=== PATIENT | female | born 2000 | race African-American/Black ===

== ENCOUNTER 2018-01-04 03:18 | Observation (INO) | payer MEDICAID ==
[2018-01-04] VITALS (9 sets, daily range): BP systolic 89–120; BP diastolic 51–70; PULSE 66–128; RESP 16–22; TEMP 97.9–99.4; O2SAT 93–99
[~2018-01-04 03:18] MED LIST: IBUP600 PO; OXYC1SOL5 PO; PREN1CAP30 PO
--- NOTE | 2018-01-04 03:35 | PD ---
HPI Chief Complaint: Respiratory Symptoms Time Seen by Provider: 03:26 Travel History International Travel<30 days: No Contact w/Intl Traveler<30days: No Traveled to known affect area: No History of Present Illness HPI The patient is a 17 year old female who presents to the [facility] emergency department with a history of shortness of breath that began 2-3 days ago. The patient reports that it became much worse this evening at work. The patient reports that she became nauseated and flushed and passed out. She denies hurting herself with a syncopal event. The patient reports having history of asthma, however she has not been on a rescue inhaler for the last couple of years. She denies having any lower extremity edema, calf pain, or erythema. She is currently on a Nexplanon implant for control. She reports that she has had vaginal bleeding and spotting for the last month. The patient reports having a cough that has been dry in character, clear rhinorrhea. She reports having chills but no known fever. The patient had one episode of vomiting prior to arrival. On review of systems otherwise, she denies having any neck pain, abdominal pain, diarrhea, urinary symptoms, or other neurologic symptoms. [facility] Past Medical History Narrative Medical The patient has a past medical history of asthma Asthma: Yes Autoimmune Disease: No Blood Disorders: No Anxiety: No Depression: No Heart Rhythm Problems: No Cardiovascular Problems: No Chest Pain: Yes (HX OF ASTHMA.) Cystic Fibrosis: No Diminished Hearing: No Genitourinary: No Headaches: No Hypertension: No Musculoskeletal: No Neurologic: Yes Psychiatric: No Respiratory: Yes Immunizations Current: Yes Seizures: No Sickle Cell Disease: No Sleep Apnea: No ?: Unknown Past Surgical History Narrative Surgical The patient's past surgical history is significant for a . Abdominal Surgery: No Cardiac Surgery: No Section: Yes Ear Surgery: No Endocrine Surgery: No Eye Surgery: No Genitourinary Surgery: No Gynecologic Surgery: No Neurologic Surgery: No Oral Surgery: No Thoracic Surgery: No Other Surgery: No Social History Alcohol Use: No Tobacco Use: No Substance Use: No Allergies-Medications (Allergen,Severity, Reaction): Coded Allergies: No Known Allergies (Verified Adverse Reaction, Unknown, 01/04/18) Reported Meds & Prescriptions Reported Meds & Active Scripts Active Review of Systems Except as stated in HPI: all other systems reviewed are Neg General / Constitutional: No: Fever Eyes: No: Visual changes HENT: Positive: Rhinorrhea, Congestion, No: Headaches Cardiovascular: Positive: Chest Pain or Discomfort, Dyspnea on exertion Respiratory: Positive: Cough, Shortness of Breath Gastrointestinal: Positive: Nausea, Vomiting, No: Diarrhea, Abdominal Pain Genitourinary: No: Dysuria Musculoskeletal: No: Pain Skin: No Rash Neurologic: Positive: Syncope, No: Weakness, Focal Abnormalities, Change in Mentation, Slurred Speech, Sensory Disturbance Psychiatric: No: Depression Endocrine: No: Polydipsia Hematologic/Lymphatic: No: Easy Bruising Physical Exam Narrative General: The patient is a well-developed well-nourished female, short of breath on arrival with accessory muscle use noted. Head and Neck exam: Head is normocephalic atraumatic. Eyes: EOMI, pupils are equal round and reactive to light. Nose: Midline septum with pink mucous membranes Mouth: Dentition unremarkable. Moist mucus membranes. Posterior oropharynx is not erythematous. No tonsillar hypertrophy. Uvula midline. Airway patent. Neck: No palpable lymphadenopathy. No nuchal rigidity. No thyromegaly. Cardiovascular: Sinus tachycardia in the low 100 without murmurs, gallops, or rubs. No pulse deficit to the extremities on simultaneous auscultation and palpation of her radial artery. Lungs: Expiratory wheezes are audible in bilateral lung galicia. No rhonchi, no crackles. The patient has accessory muscle use noted. The patient has mild conversational dyspnea. No paroxysmal abdominal breathing. Abdomen: Soft, without tenderness to palpation in all 4 quadrants of the abdomen. No guarding, rebound, or rigidity. Normal bowel sounds are audible. No tenderness on palpation of McBurney's point. Negative Chinchilla sign. Extremities: No clubbing, cyanosis, or edema. 2+ pulses in all 4 extremities. No calf tenderness on palpation. Back: No costovertebral angle tenderness to palpation. Neurologic Exam: Grossly nonfocal. Skin Exam: No rash noted. Intact skin that is warm and dry. Data Data Last Documented VS Vital Signs Date Time Temp Pulse Resp B/P (MAP) Pulse Ox O2 Delivery O2 Flow Rate FiO2 01/04/18 03:50 94 Nasal Cannula 21 01/04/18 03:45 22 01/04/18 03:29 119 01/04/18 03:19 99.0 120/70 (87) Orders Orders Complete Blood Count With Diff (01/04/18 03:41) Comprehensive Metabolic Panel (01/04/18 03:41) Lipase (01/04/18 03:41) Magnesium (Mg) (01/04/18 03:41) Chest, Single Ap (01/04/18 03:41) Iv Access Insert/Monitor (01/04/18 03:41) Ecg Monitoring (01/04/18 03:41) Oximetry (01/04/18 03:41) Ed Urine Pregnancytest Poc (01/04/18 03:41) Methylprednisolone So Succ Inj (Solumedr (01/04/18 03:45) Albuterol-Ipratropium Neb (Duoneb Neb) (01/04/18 03:45) Sodium Chlor 0.9% 1000 Ml Inj (Ns 1000 M (01/04/18 03:45) Ondansetron Inj (Zofran Inj) (01/04/18 03:45) Admit Order (Ed Use Only) (01/04/18 05:56) Azithromycin Inj (Zithromax Inj) (01/04/18 06:00) Sodium Chlor 0.9% 1000 Ml Inj (Ns 1000 M (01/04/18 06:00) Labs Laboratory Tests Test 01/04/18 03:55 White Blood Count 12.2 TH/MM3 Red Blood Count 4.59 MIL/MM3 Hemoglobin 13.7 GM/DL Hematocrit 41.0 % Mean Corpuscular Volume 89.5 FL Mean Corpuscular Hemoglobin 29.9 PG Mean Corpuscular Hemoglobin Concent 33.4 % Red Cell Distribution Width 14.2 % Platelet Count 345 TH/MM3 Mean Platelet Volume 8.4 FL Neutrophils (%) (Auto) 89.7 % Lymphocytes (%) (Auto) 5.8 % Monocytes (%) (Auto) 3.9 % Eosinophils (%) (Auto) 0.3 % Basophils (%) (Auto) 0.3 % Neutrophils # (Auto) 10.9 TH/MM3 Lymphocytes # (Auto) 0.7 TH/MM3 Monocytes # (Auto) 0.5 TH/MM3 Eosinophils # (Auto) 0.0 TH/MM3 Basophils # (Auto) 0.0 TH/MM3 CBC Comment DIFF FINAL Differential Comment Blood Urea Nitrogen 9 MG/DL Creatinine 0.75 MG/DL Random Glucose 135 MG/DL Total Protein 8.2 GM/DL Albumin 4.0 GM/DL Calcium Level 9.4 MG/DL Magnesium Level 2.0 MG/DL Alkaline Phosphatase 71 U/L Aspartate Amino Transf (AST/SGOT) 20 U/L Alanine Aminotransferase (ALT/SGPT) 21 U/L Total Bilirubin 0.4 MG/DL Sodium Level 140 MEQ/L Potassium Level 3.9 MEQ/L Chloride Level 107 MEQ/L Carbon Dioxide Level 23.2 MEQ/L Anion Gap 10 MEQ/L Estimat Glomerular Filtration Rate 120 ML/MIN Lipase 108 U/L MDM Medical Decision Making Medical Screen Exam Complete: Yes Emergency Medical Condition: Yes Medical Record Reviewed: Yes Differential Diagnosis Asthma exacerbation, versus symptomatic anemia from dysfunctional uterine bleeding, versus pneumothorax, versus pneumonia Narrative Course During the course of the patient's emergency department visit, the patient's history, examination, and differential diagnosis were reviewed with the patient. The patient was placed on a cardiac exercise specialist with oximetry and frequent blood pressure monitoring. The patient had IV access obtained and blood work sent for analysis. The patient was initially provided Solu-Medrol 125 mg IV, DuoNeb 3. The patient's laboratory studies were reviewed and remarkable for a white count of 12.2, hemoglobin 13.7, platelets 345 with 89.7 neutrophils, CMP is remarkable for a glucose of 135, otherwise unremarkable, lipase 108. Radiology studies were reviewed and remarkable for a chest x-ray that shows no evidence of acute cardiopulmonary disease. The patient on reexamination was noted to continue to have wheezing and tachycardia. The patient's O2 saturation on room air is 93%. The patient was resting comfortably with resolution of the retractions, however wheezing was noted on auscultation. The patient will be admitted to the hospital for observation and treatment of an asthma exacerbation. The patient was treated with azithromycin 500 mg IV 1. The patient's results were discussed with the patient, including the plan of care. I explained that further testing and/ or monitoring is indicated based on the patient's history, examination, and/ or laboratory findings. Therefore, I recommended admission for additional evaluation. The patient expressed understanding and was agreeable with this plan. The patient was admitted to the hospital in stable condition and sent to a bed under the care of the [facility] service. Physician Communication Physician Communication The patient's case including history, pertinent physical examination findings, and laboratory studies were discussed with Dr. Lozano. It was agreed that the patient would be admitted to the [facility] service. Diagnosis Primary Impression: Asthma exacerbation Qualified Codes: J45.41 - Moderate persistent asthma with (acute) exacerbation Admitting Information Admitting Physician Requests: Tisha Montalvo MD Jan 04, 2018 03:35
[2018-01-04] MEDS ORDERED: methylPREDNISolone SOD SUCC 125 MG/2 ML VIAL IV PUSH ONE (03:45)
[2018-01-04] MEDS ORDERED: SODIUM CHLOR 0.9% 1000 ML INJ 1,000 ML IV ONE ×2 (03:45→06:00)
[2018-01-04] MEDS ORDERED: ONDANSETRON HCL 4 MG/2 ML VIAL IV ONE (03:45)
[2018-01-04] MEDS: RESP: ALBUTEROL 2.5 MG/IPRATROPIUM 0.5 MG NEB (SCH) INH ×2 (03:49→03:50)
--- NOTE | 2018-01-04 04:09 | RADRPT ---
EXAM DATE/TIME: 01/04/2018 03:57 [place] COMPARISON: No previous studies available for comparison. INDICATIONS : Short of breath. MEDICAL HISTORY : None. SURGICAL HISTORY : None. ENCOUNTER: Initial ACUITY: 1 day PAIN SCORE: 0/10 LOCATION: Bilateral chest FINDINGS: A single view of the chest demonstrates the lungs to be symmetrically aerated without evidence of mas s, infiltrate or effusion. The cardiomediastinal contours are unremarkable. Osseous structures are intact. CONCLUSION: No evidence of acute cardiopulmonary disease. Nelson Schmitz MD on January 04, 2018 at 4:08 Board Certified Radiologist. This report was verified electronically.
[2018-01-04 04:20] LABS: AUTOMATED NEUTROPHIL # 10.9 TH/MM3 (1.8-7.7); BASOPHIL % 0.3 % (0.0-2.0); EOSINOPHIL % 0.3 % (0.0-4.0); HEMOGLOBIN 13.7 GM/DL (11.6-15.3); LYMPH % 5.8 % (9.0-44.0); LYMPHOCYTE # 0.7 TH/MM3 (1.0-4.8); MEAN CELL VOLUME 89.5 FL (80.0-100.0); MEAN CORPUSCULAR HEMOGLOBIN 29.9 PG (27.0-34.0); MEAN CORPUSCULAR HGB CONC 33.4 % (32.0-36.0); MEAN PLATELET VOLUME 8.4 FL (7.0-11.0); MONO % 3.9 % (0.0-8.0); MONOCYTE # 0.5 TH/MM3 (0-0.9); NEUT % 89.7 % (16.0-70.0); PLATELET COUNT 345 TH/MM3 (150-450); RED BLOOD COUNT 4.59 MIL/MM3 (4.00-5.30); RED CELL DISTRIBUTION WIDTH 14.2 % (11.6-17.2); WHITE BLOOD COUNT 12.2 TH/MM3 (4.0-11.0)
[2018-01-04 04:43] LABS: ALKALINE PHOSPHATASE 71 U/L (45-117); TOTAL BILIRUBIN ADULT 0.4 MG/DL (0.2-1.0); TOTAL PROTEIN 8.2 GM/DL (6.4-8.2)
[2018-01-04 04:44] LABS: ALT (GPT) 21 U/L (9-42); AST (GOT) 20 U/L (16-38); BICARBONATE 23.2 MEQ/L (21.0-32.0); BLOOD UREA NITROGEN 9 MG/DL (7-18); CALCIUM 9.4 MG/DL (8.5-10.1); CHLORIDE 107 MEQ/L (98-107); CREATININE 0.75 MG/DL (0.50-1.00); GLOMERULAR FILTRATION RATE 120 ML/MIN (>89); GLUCOSE,RANDOM 135 MG/DL (74-106); SODIUM (NA) 140 MEQ/L (136-145)
[2018-01-04] MEDS ORDERED: ALBU1AER5 INH (05:42)
[2018-01-04] MEDS ORDERED: AZITHROMYCIN INJ 500 MG in SODIUM CHLOR 0.9% 250 ML INJ 250 ML IV ONE (06:00)
[2018-01-04] MEDS ORDERED: LACTULOSE SYRUP 20 GM/30 ML CUP PO PRN (06:00)
[2018-01-04] MEDS ORDERED: BISACODYL 10 MG SUPP RECTAL PRN (06:00)
[2018-01-04] MEDS ORDERED: NALOXONE HCL 0.4 MG/ML AMP IV PUSH PRN (06:00)
[2018-01-04] MEDS ORDERED: ONDANSETRON HCL 4 MG/2 ML VIAL IVP PRN (06:00)
[2018-01-04] MEDS ORDERED: SENNOSIDES 8.6 MG TAB PO PRN (06:00)
[2018-01-04] MEDS ORDERED: RESP: ALBUTEROL 2.5 MG/IPRATROPIUM 0.5 MG NEB (PRN) NEB (06:00)
[2018-01-04] MEDS ORDERED: SODIUM CHLORIDE 0.9% FLUSH 10 ML FLUSH IV FLUSH PRN (06:00)
[2018-01-04] MEDS ORDERED: ACETAMINOPHEN 325 MG TAB PO PRN (06:00)
[2018-01-04] MEDS ORDERED: MAGNESIUM HYDROXIDE SUSP 30 ML CUP PO PRN (06:00)
[2018-01-04] MEDS ORDERED: RESP: ALBUTEROL 1.25 MG/3 ML NEB (PRN) NEB (08:15)
[2018-01-04] MEDS: RESP: ALBUTEROL 2.5 MG/IPRATROPIUM 0.5 MG NEB (SCH) NEB ×4 (08:16→19:54)
--- NOTE | 2018-01-04 08:18 | HHI.HP ---
[facility] Service [place] [facility] Primary Care Physician No Primary Care Physician Admission Diagnosis Asthma exacerbation Diagnoses: (1) Asthma exacerbation Diagnosis: Principal Chief Complaint: shortness of breath Travel History International Travel<30 Days: No Contact w/Intl Traveler <30 Da: No Traveled to Known Affected Are: No History of Present Illness patient is a 17 y/o female with history of asthma who presented to ER with worsening sob. she says that she was feeling dizzy at work yesterday. she went home and she started to have sob which got worse and made her to come to ER. she has some dry cough. she's not sure if she had any fever. she says that her sob has improved since she came in. she says that ' her asthma is not bothering her as much and the last time she had an asthma attack was years ago'. Review of Systems Constitutional: DENIES: Fever, Weight loss, Chills, Night Sweats Eyes: DENIES: Blurred vision, Diplopia, Vision loss, Double Vision Ears, nose, mouth, throat: DENIES: Tinnitus, Vertigo, Throat pain, Epistaxis Respiratory: COMPLAINS OF: Cough, Shortness of breath, DENIES: Apneas, Snoring , Wheezing, Hemoptysis, Sputum production Cardiovascular: DENIES: Chest pain, Palpitations, Syncope, Dyspnea on Exertion , PND, Lower Extremity Edema, Orthopnea, Claudication Gastrointestinal: DENIES: Abdominal pain, Black stools, Bloody stools, Constipation, Diarrhea, Nausea, Vomiting, Difficulty Swallowing, Anorexia Genitourinary: DENIES: Urinary frequency, Urgency, Hematuria, Dysuria Musculoskeletal: DENIES: Joint pain, Muscle aches, Stiffness, Joint Swelling Integumentary: DENIES: Rash Neurologic: DENIES: Abnormal gait, Headache, Localized weakness, Paresthesias, Seizures, Speech Problems, Tremor, Poor Balance Psychiatric: DENIES: Anxiety, Confusion, Mood changes, Depression, Hallucinations, Agitation, Suicidal Ideation, Homicidal Ideation, Delusions Past Family Social History Past Medical History asthma Past Surgical History . Reported Medications none Allergies: Coded Allergies: No Known Allergies (Verified Adverse Reaction, Unknown, 01/04/18) Active Ordered Medications Inpatient Medications Acetaminophen (Tylenol) 650 mg Q4H PRN PO TEMP > 100.4; Start 01/04/18 at 06:00 Albuterol/ Ipratropium (Duoneb Neb) 1 ampule QID NEB NEB ; Start 01/04/18 at 08 :00 Azithromycin (Zithromax) 500 mg DAILY PO ; Start 01/05/18 at 09:00; Stop at 08:59 Azithromycin 500 mg/Sodium Chloride 250 ml @ 250 mls/hr ONCE ONCE IV Last administered on 01/04/18at 06:09; Start 01/04/18 at 06:00; Stop 01/04/18 at 06:59 ; Status DC Benzonatate (Tessalon) 100 mg TID PO ; Start 01/04/18 at 09:00 Bisacodyl (Dulcolax Supp) 10 mg DAILY PRN RECTAL SEVERE CONSITIPATION; Start at 06:00 Lactulose (Lactulose Liq) 30 ml DAILY PRN PO SEVERE CONSITIPATION; Start at 06:00 Magnesium Hydroxide (Milk Of Magnesia Liq) 30 ml Q12H PRN PO Mild constipation ; Start 01/04/18 at 06:00 Methylprednisolone Sodium Succinate (SoluMEDROL INJ) 40 mg Q8HR IV PUSH ; Start 01/04/18 at 09:00 Naloxone HCl (Narcan Inj) 0.4 mg UNSCH PRN IV PUSH SEE LABEL COMMENTS; Start at 06:00 Ondansetron HCl (Zofran Inj) 4 mg Q6H PRN IVP NAUSEA OR VOMITING; Start at 06:00 Senna/Docusate Sodium (Gianna-Colace) 1 tab BID PO ; Start 01/04/18 at 09:00 Sennosides (Senokot) 17.2 mg Q12H PRN PO Moderate constipation; Start 01/04/18 at 06:00 Sodium Chloride (NS Flush) 2 ml BID IV FLUSH ; Start 01/04/18 at 09:00 Family History not significant. Social History no smoking, alcohol or illicit drugs. Physical Exam Vital Signs Vital Signs Date Time Temp Pulse Resp B/P (MAP) Pulse Ox O2 Delivery O2 Flow Rate FiO2 01/04/18 06:17 128 20 96/51 (66) 99 Room Air 01/04/18 03:50 94 21 01/04/18 03:45 22 93 Room Air 01/04/18 03:29 119 20 97 01/04/18 03:19 99.0 124 18 120/70 (87) 95 Physical Exam GENERAL: This is a well-nourished, well-developed patient, in no apparent distress. SKIN: No rashes, ecchymoses or lesions. Cool and dry. HEAD: Atraumatic. Normocephalic. No temporal or scalp tenderness. EYES: Pupils equal round and reactive. Extraocular motions intact. No scleral icterus. No injection or drainage. ENT: Nose without bleeding, purulent drainage or septal hematoma. Throat without erythema, tonsillar hypertrophy or exudate. Uvula midline. Airway patent. NECK: Trachea midline. No JVD or lymphadenopathy. Supple, nontender, no meningeal signs. CARDIOVASCULAR: tachycardic. RESPIRATORY: bilateral wheezing. GASTROINTESTINAL: Abdomen soft, non-tender, nondistended. No hepato-splenomegaly , or palpable masses. No guarding. MUSCULOSKELETAL: Extremities without clubbing, cyanosis, or edema. No joint tenderness, effusion, or edema noted. No calf tenderness. Negative Homans sign bilaterally. NEUROLOGICAL: Awake and alert. Cranial nerves II through XII intact. Motor and sensory grossly within normal limits. Five out of 5 muscle strength in all muscle groups. Normal speech. Laboratory Laboratory Tests Test 01/04/18 03:55 White Blood Count 12.2 Red Blood Count 4.59 Hemoglobin 13.7 Hematocrit 41.0 Mean Corpuscular Volume 89.5 Mean Corpuscular Hemoglobin 29.9 Mean Corpuscular Hemoglobin Concent 33.4 Red Cell Distribution Width 14.2 Platelet Count 345 Mean Platelet Volume 8.4 Neutrophils (%) (Auto) 89.7 Lymphocytes (%) (Auto) 5.8 Monocytes (%) (Auto) 3.9 Eosinophils (%) (Auto) 0.3 Basophils (%) (Auto) 0.3 Neutrophils # (Auto) 10.9 Lymphocytes # (Auto) 0.7 Monocytes # (Auto) 0.5 Eosinophils # (Auto) 0.0 Basophils # (Auto) 0.0 CBC Comment DIFF FINAL Differential Comment Blood Urea Nitrogen 9 Creatinine 0.75 Random Glucose 135 Total Protein 8.2 Albumin 4.0 Calcium Level 9.4 Magnesium Level 2.0 Alkaline Phosphatase 71 Aspartate Amino Transf (AST/SGOT) 20 Alanine Aminotransferase (ALT/SGPT) 21 Total Bilirubin 0.4 Sodium Level 140 Potassium Level 3.9 Chloride Level 107 Carbon Dioxide Level 23.2 Anion Gap 10 Estimat Glomerular Filtration Rate 120 Lipase 108 Result Diagram: 01/04/18 0355 01/04/18 0355 Imaging Last Impressions Chest X-Ray 01/04/18 0341 Signed Impressions: Service Date/Time: Thursday, January 04, 2018 03:57 - CONCLUSION: No evidence of acute cardiopulmonary disease. MD Jono Bernabe VTE Risk Assessment Caprinmauro VTE Risk Assessment: No/Low Risk (score <= 1) Caprini Risk Assessment Model Point Value = 1 Point Value = 2 Point Value = 3 Point Value = 5 Age 41-60 Minor surgery BMI > 25 kg/m2 Swollen legs Varicose veins or History of unexplained or recurrent spontaneous Oral contraceptives or hormone replacement Sepsis (< 1 month) Serious lung disease, including pneumonia (< 1 month) Abnormal pulmonary function Acute myocardial infarction Congestive heart failure (< 1 month) History of inflammatory bowel disease Medical patient at bed rest Age 61-74 Arthroscopic surgery Major open surgery (> 45 min) Laparoscopic surgery (> 45 min) Malignancy Confined to bed (> 72 hours) Immobilizing plaster cast Central venous access Age >= 75 History of VTE Family history of VTE Factor V Leiden Prothrombin [id number] Lupus anticoagulant Anticardiolipin antibodies Elevated serum homocysteine Heparin-induced thrombocytopenia Other congenital or acquired thrombophilia Stroke (< 1 month) Elective arthroplasty Hip, pelvis, or leg fracture Acute spinal cord injury (< 1 month) Prophylaxis Regimen Total Risk Factor Score Risk Level Prophylaxis Regimen 0-1 Low Early ambulation 2 Moderate Order ONE of the following: *Sequential Compression Device (SCD) *Heparin 5000 units SQ BID 3-4 Higher Order ONE of the following medications: *Heparin 5000 units SQ TID *Enoxaparin/Lovenox 40 mg SQ daily (WT < 150 kg, CrCl > 30 mL/min) *Enoxaparin/Lovenox 30 mg SQ daily (WT < 150 kg, CrCl > 10-29 mL/min) *Enoxaparin/Lovenox 30 mg SQ BID (WT < 150 kg, CrCl > 30 mL/min) AND/OR *Sequential Compression Device (SCD) 5 or more Highest Order ONE of the following medications: *Heparin 5000 units SQ TID (Preferred with Epidurals) *Enoxaparin/Lovenox 40 mg SQ daily (WT < 150 kg, CrCl > 30 mL/min) *Enoxaparin/Lovenox 30 mg SQ daily (WT < 150 kg, CrCl > 10-29 mL/min) *Enoxaparin/Lovenox 30 mg SQ BID (WT < 150 kg, CrCl > 30 mL/min) AND *Sequential Compression Device (SCD) Assessment and Plan Assessment and Plan A/P - asthma exacerbation continue with IV steroids- neb treatment; scheduled and prn- continue zithromax. keep on oxygen as needed to keep O2 sat >90%. Discussed Condition With the patient. Problem Qualifiers (1) Asthma exacerbation: Qualified Codes: J45.41 - Moderate persistent asthma with (acute) exacerbation Jovanni Youngblood MD Jan 04, 2018 08:18
[2018-01-04] MEDS: BENZONATATE 100 MG CAP PO SCH ×3 (10:05→17:40)
[2018-01-04] MEDS: DOCUSATE SODIUM 50 MG/SENNA 8.6 MG TAB PO SCH ×2 (10:05→20:25)
[2018-01-04] MEDS: SODIUM CHLORIDE 0.9% FLUSH 10 ML FLUSH IV FLUSH SCH ×2 (10:05→20:25)
[2018-01-04] MEDS: methylPREDNISolone SOD SUCC 40 MG/1 ML VIAL IV PUSH SCH ×3 (10:37→20:25)
--- NOTE | 2018-01-04 15:24 | HHI.DCPOC ---
Discharge Care Plan Diagnosis: (1) Asthma exacerbation Your Health Problems Are: Cough Shortness of Breath Goals to Promote Your Health * To prevent worsening of your condition and complications * To maintain your health at the optimal level Directions to Meet Your Goals Take your medications as prescribed Follow your dietary instruction Follow activity as directed Keep your appointments as scheduled Take your immunizations and boosters as scheduled If your symptoms worsen call your PCP, if no PCP go to Urgent Care Center or Emergency Room Smoking is Dangerous to Your Health. Avoid second hand smoke Call the 24-hour hour crisis hotline for domestic abuse at Elda Nick PA-C Jan 04, 2018 15:24
[2018-01-05 00:06] VITALS: BP 107/69; PULSE 100; RESP 18; TEMP 96.9; O2SAT 95
[2018-01-05 03:48] VITALS: BP 99/59; PULSE 100; RESP 16; TEMP 97.8; O2SAT 95
[2018-01-05] MEDS: methylPREDNISolone SOD SUCC 40 MG/1 ML VIAL IV PUSH SCH (05:34)
[2018-01-05 07:29] LABS: AUTOMATED NEUTROPHIL # 11.3 TH/MM3 (1.8-7.7); BASOPHIL % 0.1 % (0.0-2.0); HEMATOCRIT 36.3 % (35.0-46.0); LYMPH % 9.5 % (9.0-44.0); LYMPHOCYTE # 1.3 TH/MM3 (1.0-4.8); MEAN CELL VOLUME 88.9 FL (80.0-100.0); MEAN CORPUSCULAR HEMOGLOBIN 29.5 PG (27.0-34.0); MEAN CORPUSCULAR HGB CONC 33.1 % (32.0-36.0); MEAN PLATELET VOLUME 8.1 FL (7.0-11.0); MONO % 8.9 % (0.0-8.0); MONOCYTE # 1.2 TH/MM3 (0-0.9); NEUT % 81.5 % (16.0-70.0); PLATELET COUNT 357 TH/MM3 (150-450); RED BLOOD COUNT 4.08 MIL/MM3 (4.00-5.30); WHITE BLOOD COUNT 13.9 TH/MM3 (4.0-11.0)
[2018-01-05] MEDS ORDERED: VENTAER INH (07:53)
[2018-01-05] MEDS ORDERED: AZIT250T3 PO (07:53)
[2018-01-05] MEDS ORDERED: PRED20 PO (07:53)
[2018-01-05 07:54] LABS: BICARBONATE 24.6 MEQ/L (21.0-32.0); CALCIUM 8.8 MG/DL (8.5-10.1); CREATININE 0.57 MG/DL (0.50-1.00)
[2018-01-05 08:03] VITALS: BP 104/66; PULSE 76; RESP 20; TEMP 98.5; O2SAT 95
[2018-01-05] MEDS: RESP: ALBUTEROL 2.5 MG/IPRATROPIUM 0.5 MG NEB (SCH) NEB ×2 (08:07→12:00)
[2018-01-05 08:09] VITALS: O2SAT 97
[2018-01-05] MEDS: DOCUSATE SODIUM 50 MG/SENNA 8.6 MG TAB PO SCH (08:19)
[2018-01-05] MEDS: SODIUM CHLORIDE 0.9% FLUSH 10 ML FLUSH IV FLUSH SCH (08:19)
[2018-01-05] MEDS: BENZONATATE 100 MG CAP PO SCH (08:19)
[2018-01-05] MEDS ORDERED: AZITHROMYCIN 250 MG TAB PO SCH (09:00)
[2018-01-05] MEDS ORDERED: FLUTI44I INH (09:08)
--- NOTE | 2018-01-05 09:19 | HHI.PR ---
Subjective Remarks in no acute distress. sob has improved. no new complaints. wants to go home. Objective Vitals Vital Signs Date Time Temp Pulse Resp B/P (MAP) Pulse Ox O2 Delivery O2 Flow Rate FiO2 01/05/18 08:09 97 21 01/05/18 08:03 98.5 76 20 104/66 (79) 95 01/05/18 03:48 97.8 100 16 99/59 (72) 95 01/05/18 00:06 96.9 100 18 107/69 (82) 95 01/04/18 20:28 97.9 78 16 107/61 (76) 96 01/04/18 19:56 98 21 01/04/18 15:34 99.4 96 18 105/65 (78) 96 01/04/18 12:00 99.1 66 16 89/54 (66) 98 I/O 01/04/18 01/04/18 01/04/18 01/05/18 01/05/18 01/05/18 07:00 15:00 23:00 07:00 15:00 23:00 Intake Total 1000 ml Balance 1000 ml Intake IV Total 1000 ml # Voids 1 1 Result Diagram: 01/05/18 0645 01/05/18 0645 Imaging Last Impressions Chest X-Ray 01/04/18 0341 Signed Impressions: Service Date/Time: Thursday, January 04, 2018 03:57 - CONCLUSION: No evidence of acute cardiopulmonary disease. Nelson Schmitz MD Objective Remarks GENERAL: This is a well-nourished, well-developed patient, in no apparent distress. CARDIOVASCULAR: Regular rate and regular rhythm without murmurs, gallops, or rubs. RESPIRATORY: Clear to auscultation. Breath sounds equal bilaterally. No wheezes , rales, or rhonchi. GASTROINTESTINAL: Abdomen soft, non-tender, nondistended. Normal, active bowel sounds MUSCULOSKELETAL: Extremities without clubbing, cyanosis, or edema. NEURO: Alert & Oriented x4 to person, place, time, situation. Moves all ext x4 Medications and IVs Inpatient Medications Acetaminophen (Tylenol) 650 mg Q4H PRN PO TEMP > 100.4; Start 01/04/18 at 06:00 Albuterol Sulfate (Albuterol Neb) 1.25 mg Q2HR NEB PRN NEB SHORTNESS OF BREATH ; Start 01/04/18 at 08:15 Albuterol/ Ipratropium (Duoneb Neb) 1 ampule QID NEB NEB Last administered on 01/05/18at 08:07; Start 01/04/18 at 08:00 Azithromycin (Zithromax) 500 mg DAILY PO Last administered on 01/05/18at 08:19; Start 01/05/18 at 09:00; Stop 01/09/18 at 08:59 Azithromycin 500 mg/Sodium Chloride 250 ml @ 250 mls/hr ONCE ONCE IV Last administered on 01/04/18at 06:09; Start 01/04/18 at 06:00; Stop 01/04/18 at 06:59 ; Status DC Benzonatate (Tessalon) 100 mg TID PO Last administered on 01/05/18at 08:19; Start 01/04/18 at 09:00 Bisacodyl (Dulcolax Supp) 10 mg DAILY PRN RECTAL SEVERE CONSITIPATION; Start at 06:00 Lactulose (Lactulose Liq) 30 ml DAILY PRN PO SEVERE CONSITIPATION; Start at 06:00 Magnesium Hydroxide (Milk Of Magnesia Liq) 30 ml Q12H PRN PO Mild constipation ; Start 01/04/18 at 06:00 Methylprednisolone Sodium Succinate (SoluMEDROL INJ) 40 mg Q8HR IV PUSH Last administered on 01/05/18at 05:34; Start 01/04/18 at 09:00 Naloxone HCl (Narcan Inj) 0.4 mg UNSCH PRN IV PUSH SEE LABEL COMMENTS; Start at 06:00 Ondansetron HCl (Zofran Inj) 4 mg Q6H PRN IVP NAUSEA OR VOMITING; Start at 06:00 Senna/Docusate Sodium (Gianna-Colace) 1 tab BID PO Last administered on at 20:25; Start 01/04/18 at 09:00 Sennosides (Senokot) 17.2 mg Q12H PRN PO Moderate constipation; Start 01/04/18 at 06:00 Sodium Chloride (NS Flush) 2 ml BID IV FLUSH Last administered on 01/05/18at 08: 19; Start 01/04/18 at 09:00 A/P Problem List: (1) Asthma exacerbation ICD Code: J45.901 - Unspecified asthma with (acute) exacerbation Status: Acute Assessment and Plan - asthma exacerbation- has much improved. switch to po prednisone- will discharge on albuterol and Flovent inhalers. Discharge Planning dc home today. see med list. f/u; pcp. Problem Qualifiers (1) Asthma exacerbation: Qualified Codes: J45.41 - Moderate persistent asthma with (acute) exacerbation Jovanni Youngblood MD Jan 05, 2018 09:19
[2018-01-05 11:38] VITALS: BP 107/65; PULSE 105; RESP 20; TEMP 98.7; O2SAT 95
== END 2018-01-05 14:07 | disposition home or self-care (01) ==
LOC: NEPC 03:18 → NEDA 05:58 → NEDH 07:47 → NEPHCDU 13:09
PROVIDERS: ADMIT Internal Medicine; ATTEND Internal Medicine
DX: J45.41 Moderate persistent asthma with (acute) exacerbation (principal); Z79.899 Other long term (current) drug therapy
CPT/HCPCS: 71045; 80048; 80053; 83690; 83735; 84703; 85025; 85379; 94640; 94664; 96361; 96374; 96375; 96376; 99285; G0378; J0456; J2405; J2920; J2930; J7030; J7050